=== PATIENT | male | born 1950 | race Caucasian/White ===

== ENCOUNTER 2017-10-28 10:09 | Inpatient (IN) | payer MEDICARE, MEDICAID ==
[2017-10-25 14:43] LABS: BASOPHILS # (AUTO) 0.06 x10^3/uL (0-0.1); BASOPHILS % (AUTO) 1 % (0-1); EOSINOPHILS # (AUTO) 0.04 x10^3/uL (0-0.4); EOSINOPHILS % (AUTO) 1 % (1-7); LYMPHOCYTES # (AUTO) 1.12 x10^3/uL (1-3.4); LYMPHOCYTES % (AUTO) 17 % (22-44); MD NO; MEAN CORPUSCULAR HEMOGLOBIN 34.9 pg (27.5-34.5); MEAN CORPUSCULAR HGB CONC 34.4 g/dL (33.2-36.2); MEAN CORPUSCULAR VOLUME 101.5 fL (81-97); MEAN PLATELET VOLUME 9.3 fL (7.4-10.4); MONOCYTES # (AUTO) 0.55 x10^3/uL (0.2-0.8); MONOCYTES % (AUTO) 8 % (2-9); NEUTROPHILS # (AUTO) 4.77 x10^3/uL (1.8-6.8); NEUTROPHILS % (AUTO) 73 % (42-75); PLATELET COUNT 224 x10^3/uL (130-400); RED BLOOD COUNT 4.43 x10^6/uL (4.38-5.82)
[2017-10-25 14:44] LABS: HCT (SEDRATE) 45.3 % (39.2-51.8)
[2017-10-25 14:50] LABS: INTERNATIONAL NORMALIZED RATIO 0.98 (0.93-1.1); MICROSCOPIC INDICATED; PROTHROMBIN TIME 10.1 Seconds (9.6-11.5)
[2017-10-25 14:51] LABS: ALANINE AMINOTRANSFERASE 53 U/L (12-78); ALBUMIN 3.8 g/dL (3.4-5.0); ANION GAP 5 mmol/L (5-15); CALCIUM 9.2 mg/dL (8.5-10.1); CHLORIDE 111 mmol/L (98-107); CREATININE 0.73 mg/dL (0.7-1.3)
[2017-10-25 14:52] LABS: ALKALINE PHOSPHATASE 70 U/L (45-117); TOTAL PROTEIN 7.7 g/dL (6.4-8.2)
[~2017-10-28] VITALS: Ht 182.9 cm; Wt 78.0 kg
[~2017-10-28 10:09] MED LIST: OMEP20TA62 PO; OXYCODONE PO; ZOCOR PO
[2017-10-28] MEDS ORDERED: ALBUTEROL SULFATE 2.5 MG/3 ML NPPB PRN (10:30)
[2017-10-28] MEDS ORDERED: MEPERIDINE/PF 25MG/0.5ML IVPush PRN (10:30)
[2017-10-28] MEDS ORDERED: LABETALOL 5MG/ML, 20ML IV PRN ×2 (10:30→16:30)
[2017-10-28] MEDS ORDERED: ONDANSETRON 2MG/ML, 2ML IV PRN (10:30)
[2017-10-28] MEDS ORDERED: EPHEDRINE 50 MG/ML, 1ML IVPush PRN (10:30)
[2017-10-28] MEDS ORDERED: PROMETHAZINE 25 MG/ML, 1ML IV PRN (10:30)
[2017-10-28] MEDS ORDERED: METOPROLOL 1 MG/ML, 5ML IV PRN (10:30)
[2017-10-28] MEDS ORDERED: hydrALAzine 20 MG/ML, 1ML IV PRN (10:30)
[2017-10-28] MEDS ORDERED: LACTATED RINGERS 1,000 ML IV SCH (10:35)
[2017-10-28] MEDS ORDERED: FENTANYL PF 250 MCG/5ML ONE (10:42)
[2017-10-28 10:49] VITALS: BP 159/98
[2017-10-28] MEDS ORDERED: GABAPENTIN 300 MG CAPSULE PO ONE (11:00)
[2017-10-28] MEDS ORDERED: OXYcodone IR 5MG TABLET PO ONE (11:00)
[2017-10-28] MEDS ORDERED: ACETAMINOPHEN 500 MG TABLET PO ONE (11:00)
[2017-10-28] MEDS ORDERED: ONDANSETRON ODT 8 MG PO ONE (11:00)
[2017-10-28] MEDS ORDERED: BUPIVACAINE/PF 0.5% ONE (11:27)
[2017-10-28] MEDS ORDERED: VANCOMYCIN 1,000 MG ONE ×3 (11:27→11:28)
[2017-10-28] MEDS ORDERED: EPINEPHRINE 1 MG/ML, 1ML ONE (11:27)
[2017-10-28] MEDS ORDERED: THROMBIN 20,000 UNIT VIAL TP ONE (11:27)
[2017-10-28] MEDS ORDERED: TRANEXAMIC ACID 100 MG/ML, 10ML ONE (11:27)
[2017-10-28] MEDS ORDERED: DEXAMETHASONE 4 MG/ML, 1ML ONE (11:49)
[2017-10-28] MEDS ORDERED: PROPOFOL 10 MG/ML, 20ML ONE (11:51)
[2017-10-28] MEDS ORDERED: ROCURONIUM 10MG/ML,5ML ONE (11:51)
[2017-10-28] MEDS ORDERED: CEFAZOLIN 1,000 MG ONE ×2 (11:51)
[2017-10-28] MEDS ORDERED: GLYCOPYRROLATE 0.4 MG/2 ML, 2ML ONE (12:51)
[2017-10-28] MEDS ORDERED: NEOSTIGMINE 1 MG/ML, 10ML ONE (12:51)
[2017-10-28] MEDS ORDERED: ONDANSETRON 2MG/ML, 2ML ONE (12:57)
[2017-10-28] MEDS ORDERED: HYDROmorphone 2 MG/ML, 1ML ONE ×2 (13:44→14:50)
[2017-10-28] MEDS ORDERED: FENTANYL PF 100 MCG/2ML ONE (13:44)
[2017-10-28] MEDS: FENTANYL PF 100 MCG/2ML IV PRN ×2 (13:46→13:51)
[2017-10-28] MEDS: HYDROmorphone 1 MG/ML, 1ML IV PRN ×5 (13:59→14:52)
[2017-10-28] MEDS ORDERED: TRANEXAMIC ACID 1,000 MG in SODIUM CHLORIDE 0.9% 100 ML IV ONE (14:00)
[2017-10-28] MEDS ORDERED: TRANEXAMIC ACID 100 MG/ML, 10ML IVPB ONE (14:00)
[2017-10-28] MEDS ORDERED: OXYcodone 5 MG/5 ML ORAL.SOL UDC ONE ×2 (14:07→14:39)
[2017-10-28] MEDS: OXYcodone 5 MG/5 ML ORAL.SOL UDC PO PRN ×2 (14:08→14:40)
[2017-10-28] MEDS ORDERED: KETOROLAC 30 MG/1 ML ONE (14:27)
[2017-10-28] MEDS ORDERED: KETOROLAC 30 MG/1 ML IVPush PRN (14:30)
[2017-10-28] MEDS ORDERED: MEPERIDINE/PF 50 MG/ML ONE (14:39)
[2017-10-28] MEDS ORDERED: KETOROLAC 30 MG/1 ML IVPush ONE (15:00)
[2017-10-28 15:40] VITALS: BP 143/80
[2017-10-28] MEDS ORDERED: LORazepam 2 MG/ML, 1ML IV PRN (16:00)
[2017-10-28] MEDS ORDERED: ALUMINUM/MAG/SIMETHICONE 30 ML UDC PO PRN (16:00)
[2017-10-28] MEDS ORDERED: ZOLPIDEM 5MG TABLET PO PRN (16:00)
[2017-10-28] MEDS ORDERED: SCOPOLAMINE PATCH, 1.5MG PATCH.TD72 TD SCH (16:00)
[2017-10-28] MEDS: POTASSIUM CHLORIDE 20 MEQ in D5%-0.45% NACL 1,000 ML IV SCH ×2 (16:00→17:57)
[2017-10-28] MEDS ORDERED: ONDANSETRON 2MG/ML, 2ML IVPush PRN (16:00)
[2017-10-28] MEDS ORDERED: ONDANSETRON ODT 4 MG PO PRN (16:00)
[2017-10-28] MEDS ORDERED: PROMETHAZINE 25 MG SUPP PR PRN (16:00)
[2017-10-28] MEDS ORDERED: SENNA/DOCUSATE TABLET PO PRN (16:00)
[2017-10-28] MEDS ORDERED: PROMETHAZINE 25 MG/ML, 1ML IM PRN (16:00)
[2017-10-28] MEDS ORDERED: LORazepam 1MG TABLET PO PRN (16:00)
[2017-10-28] MEDS ORDERED: MAGNESIUM HYDROXIDE 8%, 30ML UDC PO PRN (16:00)
[2017-10-28] MEDS ORDERED: DIAZEPAM 5 MG TABLET PO PRN (16:00)
[2017-10-28] MEDS ORDERED: BISACODYL 10 MG SUPP PR PRN (16:00)
[2017-10-28] MEDS ORDERED: morphine SULFATE 10 MG/ML, 1ML IV PRN (16:00)
[2017-10-28] MEDS ORDERED: OXYcodone IR 5MG TABLET PO PRN (16:30)
[2017-10-28] MEDS ORDERED: KETOROLAC 30 MG/1 ML IV PRN (16:30)
[2017-10-28] MEDS ORDERED: ACETAMINOPHEN 500 MG TABLET PO PRN (16:30)
[2017-10-28] MEDS: ASPIRIN 325 MG TABLET EC PO SCH (18:00)
[2017-10-28] MEDS: DOCUSATE 100 MG CAPSULE PO SCH (19:57)
[2017-10-28] MEDS: CEFAZOLIN PMX 2GM/50ML 50 ML IVPB SCH (19:57)
[2017-10-28] MEDS ORDERED: CEFAZOLIN PMX 2GM/100ML 100 ML IVPB SCH (20:00)
[2017-10-28 21:01] VITALS: BP 111/76
[2017-10-29 00:35] VITALS: BP 105/68
[2017-10-29] MEDS: POTASSIUM CHLORIDE 20 MEQ in D5%-0.45% NACL 1,000 ML IV SCH (03:57)
[2017-10-29] MEDS: CEFAZOLIN PMX 2GM/50ML 50 ML IVPB SCH (03:57)
[2017-10-29 04:42] VITALS: BP 104/68
[2017-10-29] MEDS: ASPIRIN 325 MG TABLET EC PO SCH (05:32)
[2017-10-29] MEDS: OXYcodone IR 5MG TABLET PO PRN ×3 (05:34→10:32)
[2017-10-29 05:44] LABS: MEAN CORPUSCULAR HEMOGLOBIN 34.4 pg (27.5-34.5); MEAN CORPUSCULAR HGB CONC 33.6 g/dL (33.2-36.2); MEAN CORPUSCULAR VOLUME 102.3 fL (81-97); MEAN PLATELET VOLUME 9.3 fL (7.4-10.4); PLATELET COUNT 193 x10^3/uL (130-400); RED BLOOD COUNT 3.49 x10^6/uL (4.38-5.82); RED CELL DISTRIBUTION WIDTH 16.4 % (9.4-14.8)
[2017-10-29] MEDS ORDERED: OMEPRAZOLE 20 MG CAPSULE.DR PO SCH (07:30)
[2017-10-29] MEDS ORDERED: DEXAMETHASONE 6 MG in SODIUM CHLORIDE 0.9% 50 ML IV PRN (08:00)
[2017-10-29] MEDS: DOCUSATE 100 MG CAPSULE PO SCH (08:38)
[2017-10-29 09:46] VITALS: BP 93/59
[2017-10-29 14:13] VITALS: BP 97/59
== END 2017-10-29 15:11 | disposition home or self-care (01) | DRG 470 ==
LOC: ORIP 10:09 → 4NOR 15:25
PROVIDERS: ADMIT Orthopaedic Surgery Orthopaedic Surgery of the Spine; ATTEND Orthopaedic Surgery Orthopaedic Surgery of the Spine
PROC: 0SRB04A Replacement of Left Hip Joint with Ceramic on Polyethylene Synthetic Substitute, Uncemented, Open Approach (ICD-10-PCS; principal; 2017-10-28 12:30)
DX: M16.12 Unilateral primary osteoarthritis, left hip (principal); K21.9 Gastro-esophageal reflux disease without esophagitis; Z87.891 Personal history of nicotine dependence
CPT/HCPCS: 36415; 71046; 72170; 80053; 81001; 85025; 85027; 85610; 85651; 85730; 86850; 86900; 93005; J0171; J0690; J1100; J1170; J1885; J2175; J2405; J2704; J2710; J3010; J3370; J3480; J3490; Q0162; C1776; J7120